=== PATIENT | male | born 1950 | race African-American/Black ===

== ENCOUNTER 2025-04-09 11:30 | Outpatient (CLI) | payer MEDICARE, MEDICAID ==
--- NOTE | 2025-04-10 09:44 | CONSULTATION ---
DATE OF CONSULTATION: 04/09/2025 DICTATING PHYSICIAN: Anum Giron M.S., [facility] MODIFIED BARIUM SWALLOW STUDY REPORT REFERRING PHYSICIAN: Debora Parson MD. HISTORY OF PRESENT ILLNESS: The patient is a 75-year-old male and consents to this evaluation. The patient's caregiver was present for this evaluation. History was obtained from the patient, the patient's caregiver and medical records. The patient reports symptoms of dysphagia including slow swallowing when he is eating and drinking. The patient has a diagnosis of Parkinsonian features and has severe dysarthria. He also has a diagnosis of cervical stenosis of the spinal canal. 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 The patient is currently on oxygen. CURRENT DIET: The patient is currently on a chopped thin liquid diet. MEDICATIONS: Acetaminophen 325 mg 2 tablets as needed orally every 4 hours, aspirin 81 mg 1 tablet orally once daily, atorvastatin calcium 10 mg 1 tablet orally once daily, carboxymethylcellulose sodium 0.5% solution, docusate sodium 100 mg 1 capsule as needed orally twice a day; fluticasone furoate 50 mcg/actuation aerosol powder breath activated 2 puffs in each nostril as needed inhalation once daily; furosemide 20 mg 1 tablet once daily orally, gabapentin 300 mg 1 capsule 3 times daily orally, Linzess 290 mcg 1 capsule at least 30 minutes before the first meal of the day on an empty stomach orally once a day, loratadine 10 mg 1 tablet once daily orally, melatonin 5 mg 1 tablet in the evening orally once daily, meloxicam 15 mg 1 tablet once daily orally, mineral oil light oil as directed, oxybutynin chloride ER 15 mg 1 tablet once daily orally, potassium chloride ER 8 mEq 1 tablet with food once daily orally, prazosin HCL 1 mg 1 capsule at bedtime once daily orally, Senolax 8.6 mg 2 tablets at bedtime as needed orally once a day, vitamin D3 25 mcg 1 tablet once daily orally, Bisacodyl 5 mg delayed release 2 tablets as needed orally once a day, Balsam Tatiana castor oil ointment as directed externally, Milk of Magnesia 400 mg/mL at least 4 hours between doses as needed orally 4 times a day, Deep Sea nasal spray 0.65% solution as directed nasally, undecylenic acid liquid as directed, carbidopa/levodopa 25-250 mg 1 tablet orally 5 times a day, tizanidine HCL 2 mg 1 tablet orally twice a day. PARAMETERS: The patient is seated in a lateral 90-degree view and administered the usual protocol of thin and nectar-thick liquids, puree and solid consistencies as well as self-regulated boluses of thin liquids from the cup. RESULTS: The patient was seated with a forward tilting head posture that was also tilting towards the left, likely due to his spinal difficulties. There were times when he was able to raise his head, but he was not able to hold it in this position for an extended period of time. In the oral stage of the swallow, lingual strength was moderate to severely reduced. The bolus would slide through the oral cavity and then into the pharyngeal cavity with minimal movement of the tongue. Swallow initiation was delayed to the level of the piriforms for thin liquid boluses and to the level of the vallecula for thick liquid, puree and solid consistency. The patient presented with delayed swallow initiation with thin liquids being delayed between 7-9 seconds for a swallow to initiate. For almost the entirety of this time, the bolus would reside in the pharyngeal cavity. Delayed swallow initiation can be due to decreased sensation to trigger cranial nerve 9, which initiates the swallow reflex. This can be caused by multiple of the diagnoses that the patient has including Parkinson's disease, cerebral infarction, and traumatic brain injury. The patient presented with delayed swallow initiation for the thick liquid puree and solid consistency as well, although this was between 3-5 second delay. When the patient would swallow, there was a mild pharyngeal residue after the tail of the bolus was passed. At no time was the patient noted to penetrate or aspirate on any of the bolus sizes or consistencies. ANTERIOR, POSTERIOR VIEW: The AP plane was attempted, but due to the patient's positioning of slanting to the left and being unable to hold in center for extended periods of time, we were unable to get a good video of the AP view. 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 DIAGNOSES: R13.12, dysphagia oropharyngeal phase; R47.1, dysarthria; R29.818, Parkinsonian feature; M48.02, cervical stenosis of the spinal canal. PATIENT EDUCATION: Immediately following modified barium swallow study, the patient and his caregiver were able to view the results. The patient and caregiver were able to see how the current status of the oral motor and swallowing mechanism decreases his ability to swallow normally. They were educated on a recommendation for speech therapy services. The location of this clinician's clinic was described to the caregiver and she indicated that it would be difficult for the patient to attend this location. It is difficult for the patient to be transported into his wheelchair in general, and so if he could obtain home health services, this may be the best option for the patient in terms of receiving speech and swallowing therapy. In the meantime, the patient's caregiver was educated on lingual strength exercises of lingual protrusion and lateralization against resistance with written handout provided. RECOMMENDATIONS: * It is recommended that the patient receive speech and swallowing therapy to target lingual strength and increased intensity of voice. This clinician's office location was described to the patient's caregiver and she indicated that it would be difficult to get this patient to that location. It is difficult in general to get the patient into his wheelchair for appointments and so he would benefit from home health speech therapy services if these can be obtained for the patient. * It is recommended that the patient and caregiver complete the lingual protrusion and lateralization against resistance exercises that the patient's caregiver was educated on. LONG-TERM GOALS: The patient will maintain adequate hydration/nutrition with optimum safety and efficiency of swallow function on p.o. intake without overt signs and symptoms of aspiration for the highest possible diet level. FUNCTIONAL ORAL INTAKE: The FOIS was administered to establish and document a change in the functional eating activities of this patient over time. This is a 7-point scale with 1 indicating no oral intake and totally tube dependent and 7 indicating total oral intake with no restrictions. This patient received a 5 which indicates total oral intake of multiple consistencies requiring special preparation. It is recommended that the patient continue on his current chopped thin liquid diet. G-CODE: [id number]. During this examination, 3.38 minutes of fluoroscopy time and 23.18 CAK mGy were utilized. Thank you very much for asking me to participate in the care of this kind patient. Should you have any questions regarding this evaluation or recommendations, please do not hesitate to contact me at [phone]. Anum Giron M.S., [facility] TID: [id number] RECEIPT: [id number] [facility]
== END 2025-04-09 23:59 | disposition home or self-care (01) ==
LOC: RAD 11:30
PROVIDERS: ATTEND Psychiatry & Neurology Neurology
DX: R13.12 Dysphagia, oropharyngeal phase (principal); G20.C Parkinsonism, unspecified; M48.02 Spinal stenosis, cervical region; Z79.1 Long term (current) use of non-steroidal anti-inflammatories (NSAID); Z79.82 Long term (current) use of aspirin; Z79.899 Other long term (current) drug therapy; Z87.820 Personal history of traumatic brain injury
CPT/HCPCS: 74230